=== PATIENT | female | born 1965 | race Caucasian/White ===

== ENCOUNTER 2019-09-03 18:25 | Emergency (ER) | payer OTHER, SELFPAY ==
[2019-09-03 18:52] VITALS: BP 122/78; PULSE 109; RESP 18; TEMP 37.6; O2SAT 96; BMI 25.0
--- NOTE | 2019-09-03 20:21 | XRR_ITS ---
PROCEDURE INFORMATION: Exam: XR Chest, 2 Views Exam date and time: 09/03/2019 8:40 PM Age: 54 years old Clinical indication: Cough; Additional info: Fever TECHNIQUE: Imaging protocol: XR of the chest Views: 2 views. COMPARISON: CR Chest 1 [place] [id number] 08/19/2017 4:10 PM FINDINGS: Lungs: Lungs are clear. Pleural space: There is no pleural effusion or pneumothorax. Heart/Mediastinum: Cardiomediastinal contours are unremarkable. Bones/joints: Bones are unremarkable. XR/XR chest 2V* [id number] IMPRESSION: No acute findings.
[2019-09-03 20:51] LABS: Basophils % 0.4 %; Eosinophils % 0.4 %; Hematocrit 45.1 % (37.0-47.0); Hemoglobin 15.1 g/dL (11.5-15.3); Lymphocytes # 0.6 10^3/uL (0.8-4.8); Lymphocytes % 20.5 %; Mean Corpuscular HGB Conc 33.5 g/dL (30.0-36.0); Mean Corpuscular Hemoglobin 29.6 pg (28.0-34.0); Mean Corpuscular Volume 88.4 fL (81-99); Mean Platelet Volume 10.4 fL (7.4-10.4); Monocytes # 0.2 10^3/uL (0.2-0.9); Monocytes % 6.6 %; Neutrophils % 71.7 %; Nucleated Red Blood Cells % 0 %; Platelet Count 84 10^3/cmm (130-400); Red Cell Distribution Width 12.3 % (12.1-15.1); White Blood Count 2.7 10^3/uL (4.0-10.0)
[2019-09-03 21:10] LABS: Alanine Aminotransferase 20 U/L (0-33); Albumin Level 4.7 g/dL (3.5-5.2); Alkaline Phosphatase 77 IU/L (35-105); Anion Gap 13.8 (5-19); Aspartate Amino Transferase 32 U/L (0-32); Blood Urea Nitrogen 8 mg/dL (6-20); Calcium 9.2 mg/dL (8.5-10.5); Carbon Dioxide 29 mmol/L (22-29); Chloride 99 mmol/L (98-107); Creatinine Clr Calc Pharmacy 93.4858; Globulin 2.6 g/dL (1.3-4.6); Glomerular Filtration Rate 86.6 mL/min (90-130); Glucose 118 mg/dL (65-115); Osmolality Calculated 283 mOsm/kg (285-295); Potassium 3.8 mmol/L (3.5-5.1); Sodium 138 mmol/L (136-145); Total Bilirubin 0.8 mg/dL (0.15-1.2); Total Protein 7.3 g/dL (6.6-8.7)
[2019-09-03 21:24] LABS: Lactate (Lactic Acid level) 0.9 mmol/L (0.5-2.2)
[2019-09-03 21:56] VITALS: BP 125/69; PULSE 112; RESP 18; TEMP 37.4; O2SAT 95
--- NOTE | 2019-09-03 23:55 | ED_ITS ---
HPI - Fever General: Chief Complaint: Fever Stated Complaint: refer from [facility]/blood work Time Seen by Provider: 09/03/19 23:43 Source: patient Mode of arrival: ambulatory Limitations: no limitations History of Present Illness: HPI Narrative: Patient comes in for concerns of fever and tick bite. Patient reports being bitten by a tick about 2 weeks ago and started running a fever in the last week. Patient was seen at [facility] and was referred to the ER for further evaluation. MD elicited complaint: fever and malaise Review of Systems General: Reports: 10 or more systems reviewed and unremarkable except in HPI and below Skin/Breast: Reports: other (Tick bite) Physical Exam Const: COMMON NORMALS: no acute distress and patient oriented x3 GENERAL APPEARANCE: cooperative HENMT: COMMON NORMALS: normocephalic, TM's normal bilaterally and Normal external nose present HEAD & SCALP: normal to inspection and normocephalic NOSE: Normal external nose present TYMPANIC MEMBRANE: TM's normal bilaterally MOUTH: Normal oral and palatal mucosa present THROAT: posterior oropharynx normal Eye: GENERAL EYE: appearance normal, both eyes and all related structures Neck/C-Spine: COMMON NORMALS: full ROM Lymph: LYMPHATIC: no lymphadenopathy noted Chest: COMMONS NORMALS: normal inspection of the chest Resp: COMMON NORMALS: normal respiratory effort EFFORT & INSPECTION: Yes able to speak in complete sentences Cardio: COMMON NORMALS: regular rate and regular rhythm RATE: regular rate RHYTHM: regular rhythm GI: COMMON NORMALS: non-tender : COMMON NORMALS: Yes no CVA tenderness BLADDER/KIDNEY EXAM: Yes no CVA tenderness Back/Pelvis: COMMON NORMALS: no CVA tenderness and thoracic and lumbar spine normal to inspection Extremity: COMMON NORMALS: normal to inspection Neuro: COMMON NORMALS: patient oriented x3 and moves all extremities Psych: COMMON NORMALS: mental status grossly normal and cooperative Skin: COMMON NORMALS: no rashes or lesions noted GENERAL SKIN EXAM: no rashes or lesions noted Course Vital Signs: Vital signs: Vital Signs Temperature 97.6 F 09/04/19 00:09 Pulse Rate 103 H 09/04/19 00:09 Respiratory Rate 16 09/04/19 00:09 Blood Pressure 116/78 09/04/19 00:09 Pulse Oximetry 97 09/04/19 00:09 MDM - Fever MDM Narrative: Medical decision making narrative: Patient comes in today for complaints of fever and malaise for about 1 week. Patient appears mildly unwell. Vital signs are normal except for temperature and slight increase in pulse. Respirations are even lungs are clear to auscultation no noticeable rashes noted. Differential diagnosis includes urinary tract infection, sepsis, pneumonia, tickborne illness, viral syndrome. CBC notes a mild leukopenia with a white blood cell count of 2.7, blood glucose was 118, remainder of labs were insignificant. Chest x-ray was negative for pneumonia. Urinalysis was normal. Believe patient might have a tickborne illness although we do not see elevation of liver enzymes. Other options may be a viral syndrome. Recommend patient take doxycycline as directed for the next 10 days. Patient will wait for tick panel and rub follow-up with primary care in 1 week for recheck on blood count. Patient reports understanding of care plan and need for follow-up. Lab Data: Labs: Lab Results 09/03/19 09/03/19 09/03/19 Range/Units 20:41 20:41 20:41 WBC 2.7 L (4.0-10.0) 10^3/ uL RBC 5.10 (4.1-5.3) 10^6/u L Hgb 15.1 (11.5-15.3) g/dL Hct 45.1 (37.0-47.0) % MCV 88.4 (81-99) fL MCH 29.6 (28.0-34.0) pg MCHC 33.5 (30.0-36.0) g/dL RDW 12.3 (12.1-15.1) % Plt Count 84 L (130-400) 10^3/c mm MPV 10.4 (7.4-10.4) fL Neut % (Auto) 71.7 % Lymph % (Auto) 20.5 % [place] % (Auto) 6.6 % Eos % (Auto) 0.4 % Baso % (Auto) 0.4 % Neut # (Auto) 2.0 (1.8-7.7) 10^3/u L Lymph # (Auto) 0.6 L (0.8-4.8) 10^3/u L [place] # (Auto) 0.2 (0.2-0.9) 10^3/u L Eos # (Auto) 0.0 (0.0-0.8) 10^3/u L Baso # (Auto) 0.0 (0.0-0.1) 10^3/u L Nucleated RBC % (a uto) 0 % Nucleated RBCs # 0.0 /100WBC Sodium 138 (136-145) mmol/L Potassium 3.8 (3.5-5.1) mmol/L Chloride 99 (98-107) mmol/L Carbon Dioxide 29 (22-29) mmol/L Anion Gap 13.8 (5-19) BUN 8 (6-20) mg/dL Creatinine 0.7 (0.5-0.9) mg/dL GFR Calculation 86.6 L (90-130) mL/min Glucose 118 H (65-115) mg/dL Calculated Osmolal ity 283 L (285-295) mOsm/k g Lactate 0.9 (0.5-2.2) mmol/L Calcium 9.2 (8.5-10.5) mg/dL Total Bilirubin 0.8 (0.15-1.2) mg/dL AST 32 (0-32) U/L ALT 20 (0-33) U/L Alkaline Phosphata se 77 (35-105) IU/L Total Protein 7.3 (6.6-8.7) g/dL Albumin 4.7 (3.5-5.2) g/dL Globulin 2.6 (1.3-4.6) g/dL Discharge Plan Discharge Patient Disposition: Home, Self-Care Clinical Impression: Tick bite Qualifiers: Encounter type: initial encounter Qualified Code(s): W57.XXXA - Bitten or stung by nonvenomous insect and other nonvenomous arthropods, initial encounter Condition: Stable Prescriptions: New doxycycline hyclate 100 mg capsule 100 mg PO BID 10 Days Qty: 20 RF: 0 Discharge Orders: Discharge Order (Routine); Ordered 09/03/19 Ordered By: Alexei Katz Discharge Diet: Usual diet Discharge Activity: Increase activity as tolerated Activity Restrictions/Additional Instructions: Drink plenty of water. Avoid direct sunlight while on antibiotic. Follow-up with primary care in 1 week. Return to the ER for worsening symptoms or new concerns. 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
[2019-09-04] MEDS: doxycycline 100 mg Tablet PO (00:01)
[2019-09-04 00:09] VITALS: BP 116/78; PULSE 103; RESP 16; TEMP 36.4; O2SAT 97
[2019-09-04 01:48] LABS: C Reactive Protein 12.7 mg/L (0.0-4.9)
== END 2019-09-04 00:10 | disposition home or self-care (01) ==
PROVIDERS: Emergency Medicine; Emergency Provider Nurse Practitioner Family
DX: T14.8XXA Other injury of unspecified body region, initial encounter (principal); W57.XXXA Bitten or stung by nonvenomous insect and other nonvenomous arthropods, initial encounter
CPT/HCPCS: 12345; 36415; 71046; 80053; 83605; 85025; 86140; 86618; 86666; 86757; 87040; 99281; 99283

== ENCOUNTER → 2020-10-03 12:31 | Outpatient (BNVA) | payer OTHER, SELFPAY | PROVIDERS: Visit Provider Family Medicine | DX: D72.819 Decreased white blood cell count, unspecified (principal); Z13.6 Encounter for screening for cardiovascular disorders; Z76.89 Persons encountering health services in other specified circumstances | CPT/HCPCS: 80053; 80061; 85025 ==

== ENCOUNTER 2020-12-20 10:12 | Outpatient (CLI) | payer OTHER, SELFPAY ==
--- NOTE | 2020-12-20 10:22 | XR_ITS ---
WS: [id number] Left knee, 3 views, 12/20/2020 Clinical Data: L knee pain, swelling Comparison: None. Findings: No fractures or dislocations are seen. The joint spaces are normal. The patella is intact. The soft t issues are unremarkable. XR/XR knee LT 3V* [id number] Impression: Negative left knee. Kellgren-Jame Classification: grade 0 (none): definite absence of x-ray torres nges of osteoarthritis
== END 2020-12-20 10:13 | disposition home or self-care (01) ==
LOC: RAD 10:15
PROVIDERS: PCP Family Medicine; Visit Provider Family Medicine
DX: M25.562 Pain in left knee (principal); M25.462 Effusion, left knee
CPT/HCPCS: 73562

== ENCOUNTER 2022-02-04 07:57 | Outpatient (CLI) | payer OTHER, SELFPAY ==
--- NOTE | 2022-02-04 08:11 | US_ITS ---
WS: [id number] DIAGNOSTIC BILATERAL DIGITAL BREAST TOMOSYNTHESIS MAMMOGRAPHY WITH CAD RIGHT breast ultrasound, limited. HISTORY: Mass at the RIGHT areolar has decreased in size after antibiotic treatment. COMPARISON: None available. TECHNIQUE: Bilateral craniocaudad, mediolateral oblique, and mediolateral views are submitted with to mosynthesis and SM. Spot compression RIGHT CC. Computer aided detection utilized. Breast composition: There are scattered areas of fibroglandular density. Skin thickening and increase d density in the RIGHT areolar region greatest laterally. This is the location of the palpable marker . There is slight soft tissue thickening posterior to the nipple also. Otherwise no abnormality withi n either breast. RIGHT breast ultrasound, limited. Within the very superficial soft tissues greatest on the 9:00 axis is soft tissue edema measuring 12 x 3 mm. No color Doppler performed. Consistent with a small residual inflammatory process. US/US breast RT limited* [id number] IMPRESSION: BI-RADS: 2-Benign FOLLOW UP: 1 Year Follow-up Very minimal subcutaneous soft tissue edema at the 9:00 axis of the RIGHT areol ar. This corresponds to the fluid being abscess that was treated. No breast abn ormality.
--- NOTE | 2022-02-04 08:48 | MM_ITS ---
WS: [id number] DIAGNOSTIC BILATERAL DIGITAL BREAST TOMOSYNTHESIS MAMMOGRAPHY WITH CAD RIGHT breast ultrasound, limited. HISTORY: Mass at the RIGHT areolar has decreased in size after antibiotic treatment. COMPARISON: None available. TECHNIQUE: Bilateral craniocaudad, mediolateral oblique, and mediolateral views are submitted with to mosynthesis and SM. Spot compression RIGHT CC. Computer aided detection utilized. Breast composition: There are scattered areas of fibroglandular density. Skin thickening and increase d density in the RIGHT areolar region greatest laterally. This is the location of the palpable marker . There is slight soft tissue thickening posterior to the nipple also. Otherwise no abnormality withi n either breast. RIGHT breast ultrasound, limited. Within the very superficial soft tissues greatest on the 9:00 axis is soft tissue edema measuring 12 x 3 mm. No color Doppler performed. Consistent with a small residual inflammatory process. MM/[place] [id number] IMPRESSION: BI-RADS: 2-Benign FOLLOW UP: 1 Year Follow-up Very minimal subcutaneous soft tissue edema at the 9:00 axis of the RIGHT areol ar. This corresponds to the fluid being abscess that was treated. No breast abn ormality.
== END 2022-02-04 07:58 | disposition home or self-care (01) ==
PROVIDERS: PCP Family Medicine; Visit Provider Nurse Practitioner
DX: N63.41 Unspecified lump in right breast, subareolar (principal)
CPT/HCPCS: 76642; 77062; G0279